=== PATIENT | male | born 1990 ===

== ENCOUNTER 2017-05-27 10:29 | Emergency (ER) | payer BC ==
[2017-05-27 11:02] VITALS: BP 126/74
--- NOTE | 2017-05-27 13:03 | Emergency Department Report ---
ED Lower Extremity HPI - General Chief Complaint: Extremity Injury, Lower Stated Complaint: KNEE PAIN Time Seen by Provider: 05/27/17 12:54 Source: patient Mode of arrival: Ambulatory Limitations: No Limitations - History of Present Illness Initial Comments: This is a 27-year-old male nontoxic, well nourished in appearance, no acute signs of distress presents to the ED with c/o of chronic intermittent bilateral knee pain. Patient stated he works in a [employer] [place] in [place] and is requested to be put on FMLA due to the pain. Patient otherwise, denies any pain. Patient stated it is only triggered at work in the [place]. Patient denies any trauma. Patient denies any knee swelling, redness, joint swelling. Patient denies any chest pain, shortness of breathe, fever, chills, headache, nausea, vomiting, back pain. Patient denies any allergies or PMH. MD Complaint: knee injury -: year(s) Place: work Severity scale (0 -10): 0 Improves With: nothing Worsens With: nothing Associated Symptoms: ambulatory. denies: snap/pop sensation, swelling, numbness , tingling, unable to bear weight, able to partially bear weight - Related Data Previous Rx's Medication Instructions Recorded Last Taken Type Ibuprofen [Motrin] 600 mg PO Q8H PRN #30 tablet 05/27/17 Unknown Rx Allergies Allergy/AdvReac Type Severity Reaction Status Date / Time No Known Allergies Allergy Unverified 05/27/17 10:58 ED Review of Systems ROS: Stated complaint: KNEE PAIN Other details as noted in HPI Constitutional: denies: chills, fever Eyes: denies: eye pain, eye discharge, vision change ENT: denies: ear pain, throat pain Respiratory: denies: cough, shortness of breath, wheezing Cardiovascular: denies: chest pain, palpitations Endocrine: no symptoms reported Gastrointestinal: denies: abdominal pain, nausea, diarrhea Genitourinary: denies: urgency, dysuria Musculoskeletal: arthralgia. denies: back pain, joint swelling Skin: denies: rash, lesions Neurological: denies: headache, weakness, paresthesias Psychiatric: denies: anxiety, depression Hematological/Lymphatic: denies: easy bleeding, easy bruising ED Past Medical Hx - Past Medical History Previous Medical History?: No Additional medical history: high cholesterol, left eye injury - Surgical History Past Surgical History?: Yes Additional Surgical History: Adenoids removed - Social History Smoking Status: Never Smoker - Medications Home Medications: Home Medications Medication Instructions Recorded Confirmed Last Taken Type Ibuprofen [Motrin] 600 mg PO Q8H PRN #30 tablet 05/27/17 Unknown Rx ED Physical Exam - General Limitations: No Limitations General appearance: alert, in no apparent distress - Head Head exam: Present: atraumatic, normocephalic - Eye Eye exam: Present: normal appearance, PERRL, EOMI Pupils: Present: normal accommodation - ENT ENT exam: Present: normal exam, normal orophraynx, mucous membranes moist, TM's normal bilaterally, normal external ear exam - Neck Neck exam: Present: normal inspection, full ROM. Absent: tenderness, meningismus, lymphadenopathy, thyromegaly - Respiratory Respiratory exam: Present: normal lung sounds bilaterally. Absent: respiratory distress, wheezes, rales, rhonchi, stridor, chest wall tenderness, accessory muscle use, decreased breath sounds, prolonged expiratory - Cardiovascular Cardiovascular Exam: Present: regular rate, normal rhythm, normal heart sounds. Absent: irregular rhythm, systolic murmur, diastolic murmur, rubs, gallop - GI/Abdominal GI/Abdominal exam: Present: soft, normal bowel sounds - Rectal Rectal exam: Present: deferred - Extremities Exam Extremities exam: Present: normal inspection, full ROM, normal capillary refill. Absent: tenderness, pedal edema, joint swelling, calf tenderness - Expanded Lower Extremity Exam Left Hip exam: Present: normal inspection (bilateral exam), full ROM, external rotation, internal rotation, pelvic stability. Absent: tenderness, swelling, abrasion, laceration, ecchymosis, deformity, crepidus, dislocation, erythema, shortening Upper Leg exam: Present: normal inspection (bilateral exam), full ROM. Absent: tenderness, swelling, abrasion, laceration, ecchymosis, deformity, crepidus, dislocation, erythema Knee exam: Present: normal inspection (bilateral exam), full ROM, full knee extension. Absent: tenderness, swelling, abrasion, laceration, ecchymosis, deformity, crepidus, dislocation, erythema, effusion, pain w/ pronation/ supination, posterior draw sign, pain/laxity with valgus, pain/laxity with varus Lower Leg exam: Present: normal inspection (bilateral exam), full ROM. Absent: tenderness, swelling, abrasion, laceration, ecchymosis, deformity, crepidus, dislocation, erythema, palpable cord, Jennifer's sign Ankle exam: Present: normal inspection (bilateral exam), full ROM. Absent: tenderness, swelling, abrasion, laceration, ecchymosis, deformity, crepidus, dislocation, erythema, anterior draw sign Foot/Toe exam: Present: normal inspection (bilateral exam), full ROM. Absent: tenderness, swelling, abrasion, laceration, ecchymosis, deformity, crepidus, dislocation, erythema, amputation, puncture wound, foreign body, calcaneal tenderness, tenderness at base of 5th metatarsal, nail avulsion, subungual hematoma Neuro vascular tendon exam: Present: no vascular compromise (bilateral exam). Absent: pulse deficit, abnormal cap refill, motor deficit, sensory deficit, tendon deficit, extremity cold to touch, pallor, abnormal 2-point discrimination , decreased fine/light touch, foot drop, peroneal nerve deficit Gait: Positive: observed and normal (bilateral exam) - Back Exam Back exam: Present: normal inspection, full ROM. Absent: tenderness, CVA tenderness (R), CVA tenderness (L), muscle spasm, paraspinal tenderness, vertebral tenderness, rash noted - Neurological Exam Neurological exam: Present: alert, oriented X3, CN II-XII intact, normal gait, reflexes normal - Psychiatric Psychiatric exam: Present: normal affect, normal mood - Skin Skin exam: Present: warm, dry, intact, normal color. Absent: rash ED Course Vital Signs 05/27/17 10:58 Temperature 97.9 F Pulse Rate 82 Respiratory 20 Rate Blood Pressure 126/74 O2 Sat by Pulse 100 Oximetry - Reevaluation(s) Reevaluation #1: 05/27/17 13:03 Patient is speaking in full sentences with no signs of distress noted. ED Lower Extremity MDM - Medical Decision Making This is a 27-year-old male presents with chronic intermittent knee pain. Patient stated this only treated at work and patient is requesting to be on FMLA. Upon examination there is no orthopedic abnormalities. No joint swelling or joint redness. Patient was referred to orthopedic doctor. At time of discharge, the patient does not seem toxic or ill in appearance. No acute signs of distress noted. Patient agrees to discharge treatment plan of care. No further questions noted by the patient. Critical care attestation.: If time is entered above; I have spent that time in minutes in the direct care of this critically ill patient, excluding procedure time. ED Disposition Clinical Impression: Bilateral knee pain Qualifiers: Chronicity: chronic Qualified Code(s): M25.561 - Pain in right knee; M25.562 - Pain in left knee; M25.562 - Pain in left knee; G89.29 - Other chronic pain; G89.29 - Other chronic pain Disposition: TO HOME OR SELFCARE Is pt being admited?: No Does the pt Need Aspirin: No Condition: Stable Instructions: Arthralgia (ED), Knee Pain (ED), Ibuprofen (By mouth) Additional Instructions: Follow-up with a orthopedic doctor in 3-5 days or if symptoms worsen and continue return to emergency room as soon as possible. Prescriptions: Ibuprofen [Motrin] 600 mg PO Q8H PRN #30 tablet PRN Reason: Pain Referrals: PRIMARY CAREMD [Primary Care Provider] - 3-5 Days LAYA RUBIO MD [Staff Physician] - 3-5 Days [facility] [Outside] - 3-5 Days [facility] [Outside] - 3-5 Days Forms: Work/School Release Form(ED)
== END 2017-05-27 13:17 | disposition home or self-care (01) ==
LOC: ED 10:29
DX: M25.561 Pain in right knee (principal); M25.562 Pain in left knee; G89.29 Other chronic pain; E78.00 Pure hypercholesterolemia, unspecified
CPT/HCPCS: 99282

== ENCOUNTER 2018-08-21 03:41 | Emergency (ER) | payer BC ==
[2018-08-21 03:48] VITALS: BP 135/76
[2018-08-21 04:40] LABS: Bacteria,Urine 2+ /HPF (Negative); Bilirubin,Urine NEG (Negative); Blood,Urine SM (Negative); Color,Urine Yellow (Yellow); Mucus,Urine FEW /HPF; Protein,Urine <15 mg/dL mg/dL (Negative); Urobilinogen,Urine < 2.0 mg/dL (<2.0)
[2018-08-21 04:41] LABS: WBC,Urine > 182.0 /HPF (0.0-6.0)
[2018-08-21] MEDS ORDERED: ZITHROMAX PO ONE (04:55)
[2018-08-21] MEDS ORDERED: XYLOCAINE 1% MPF 5 mL INFILTRATI ONE (04:55)
[2018-08-21] MEDS ORDERED: PYRIDIUM PO ONE (04:55)
[2018-08-21] MEDS ORDERED: ROCEPHIN IM ONE (04:55)
--- NOTE | 2018-08-21 05:31 | Emergency Department Report ---
ED Male HPI - General Chief complaint: Urogenital-Male Stated complaint: STD Time Seen by Provider: 08/21/18 05:00 Source: patient Mode of arrival: Ambulatory Limitations: No Limitations - History of Present Illness Initial comments: Patient is a 28-year-old -[place] male with no past medical history presents to the ED with complaint of acute onset persistence of dysuria, urinary frequency and urgency, penile discharge with the discharge for the last 2 days after having unprotected sexual intercourse about a week ago with a female. Patient denies testicular pain, fever, chills, hematuria, fall, traumatic injury, low back pain, abdominal pain, nausea and vomiting or dizziness. MD Complaint: penile discharge, dysuria, other (urinary urgency and frequency) -: Sudden, days(s) (3) Location: penis Radiation: none Severity: moderate Severity scale (0 -10): 5 Quality: aching, burning, sharp Consistency: constant Improves with: none, rest Worsens with: urination, palpation, movement, sexual intercourse new medication discharge, dysuria. denies: swelling, mass, rash, urinary retention, blood in urine, fever, nausea/vomiting, incontinence - Related Data Sexually active: Yes Previous Rx's Medication Instructions Recorded Last Taken Type Ibuprofen [Motrin] 600 mg PO Q8H PRN #30 tablet 05/27/17 Unknown Rx Ibuprofen [Motrin] 600 mg PO Q8H PRN #15 tablet 08/21/18 Unknown Rx Phenazopyridine [Pyridium] 100 mg PO Q8H PRN #15 tablet 08/21/18 Unknown Rx Sulfamethoxazole/Trimethoprim 1 each PO Q12H #20 tablet 08/21/18 Unknown Rx [Bactrim DS TAB] Allergies Allergy/AdvReac Type Severity Reaction Status Date / Time No Known Allergies Allergy Unverified 05/27/17 10:58 ED Review of Systems ROS: Stated complaint: STD Other details as noted in HPI Comment: All other systems reviewed and negative Constitutional: no symptoms reported, see HPI. denies: chills, diaphoresis, fe tory, malaise, weakness Eyes: as per HPI. denies: eye pain, eye discharge, vision change ENT: as per HPI. denies: ear pain, throat pain, dental pain, hearing loss, epistaxis Respiratory: no symptoms reported. denies: see HPI, cough, shortness of breath, SOB with exertion Cardiovascular: denies: as per HPI, chest pain, palpitations, dyspnea on exertion, edema, syncope, paroxysmal nocturnal dyspnea Endocrine: no symptoms reported, see HPI. denies: excessive sweating, flushing, intolerance to cold, increased thirst, increased urine, unexplained weight gain Gastrointestinal: as per HPI. denies: abdominal pain, nausea, vomiting, diarrhea, constipation, hematochezia Genitourinary: as per HPI, urgency, dysuria, frequency, discharge. denies: hematuria, testicular pain, testicular mass, other Musculoskeletal: as per HPI. denies: back pain, joint swelling, arthralgia, myalgia Skin: as per HPI. denies: rash, lesions, change in color, change in hair/nails Neurological: as per HPI. denies: headache, weakness, numbness, paresthesias, abnormal gait, vertigo Psychiatric: as per HPI Hematological/Lymphatic: as per HPI ED Past Medical Hx - Past Medical History Previous Medical History?: Yes Additional medical history: high cholesterol, left eye injury - Surgical History Past Surgical History?: Yes Additional Surgical History: Adenoids removed - Social History Smoking Status: Never Smoker Substance Use Type: None - Medications Home Medications: Home Medications Medication Instructions Recorded Confirmed Last Taken Type Ibuprofen [Motrin] 600 mg PO Q8H PRN #30 tablet 05/27/17 Unknown Rx Ibuprofen [Motrin] 600 mg PO Q8H PRN #15 tablet 08/21/18 Unknown Rx Phenazopyridine [Pyridium] 100 mg PO Q8H PRN #15 tablet 08/21/18 Unknown Rx Sulfamethoxazole/Trimethoprim 1 each PO Q12H #20 tablet 08/21/18 Unknown Rx [Bactrim DS TAB] ED Physical Exam - General Limitations: No Limitations General appearance: alert, in no apparent distress - Head Head exam: Present: atraumatic, normocephalic, normal inspection - Eye Eye exam: Present: normal appearance, PERRL, EOMI. Absent: scleral icterus, conjunctival injection, nystagmus Pupils: Present: normal accommodation - ENT ENT exam: Present: normal exam, normal orophraynx, mucous membranes moist, TM's normal bilaterally, normal external ear exam - Neck Neck exam: Present: normal inspection, full ROM. Absent: tenderness, lymphadenopathy - Respiratory Respiratory exam: Present: normal lung sounds bilaterally. Absent: respiratory distress, wheezes, rhonchi, chest wall tenderness, accessory muscle use, decreased breath sounds - Cardiovascular Cardiovascular Exam: Present: regular rate, normal rhythm, normal heart sounds - GI/Abdominal GI/Abdominal exam: Present: soft, normal bowel sounds. Absent: distended, tenderness, hyperactive bowel sounds, hypoactive bowel sounds - Rectal Rectal exam: Present: deferred - exam: Present: normal inspection, urethral discharge, circumcision. Absent: testicular tenderness, scrotal swelling, vertical testicular lie External exam: Present: normal external exam. Absent: erythema, swelling, lesions, lacerations - Extremities Exam Extremities exam: Present: normal inspection, full ROM, normal capillary refill - Back Exam Back exam: Present: normal inspection, full ROM. Absent: tenderness, CVA tenderness (R), CVA tenderness (L), muscle spasm, paraspinal tenderness, vertebral tenderness - Neurological Exam Neurological exam: Present: alert, oriented X3, CN II-XII intact, normal gait, reflexes normal - Psychiatric Psychiatric exam: Present: normal affect - Skin Skin exam: Present: warm, dry, intact, normal color ED Course Vital Signs 08/21/18 03:44 Temperature 97.9 F Pulse Rate 80 Respiratory 18 Rate Blood Pressure 135/76 O2 Sat by Pulse 100 Oximetry - Reevaluation(s) Reevaluation #1: 08/21/18 05:36 Patient is alert and oriented 3 and is mostly in distress with normal vital signs. Patient lab test results showed significant infection: Sexual transmitted disease. Gonorrhea and chlamydia tests results are pending. Patient was empirically treated for gonorrhea and Chlamydia in the ED and discharged home on medications, and advised to follow-up at the health department for further treatment and tests accompanied by his sexual partner. Patient was advised to return to the ED immediately if symptoms get worse. ED Medical Decision Making - Medical Decision Making Patient is alert and oriented 3 and is mostly in distress with normal vital signs. Patient lab test results showed significant infection: Sexual transmit amee disease. Gonorrhea and chlamydia tests results are pending. Patient was empirically treated for gonorrhea and Chlamydia in the ED and discharged home on medications, and advised to follow-up at the health department for further treatment and tests accompanied by his sexual partner. Patient was advised to return to the ED immediately if symptoms get worse. - Differential Diagnosis STD, Acute UTI, Critical care attestation.: If time is entered above; I have spent that time in minutes in the direct care of this critically ill patient, excluding procedure time. ED Disposition Clinical Impression: Urethritis, STD (sexually transmitted disease), Acute urinary tract infection Disposition: TO HOME OR SELFCARE Is pt being admited?: No Does the pt Need Aspirin: No Condition: Stable Instructions: Sexually Transmitted Diseases (ED), Safe Sex (ED), Urinary Tract Infection in Men (ED) Additional Instructions: Take medications with food, drink plenty of fluids and follow-up with the health department for further tests. Ensure that his sexual partner is also treated for the same at the health Department. Prescriptions: Sulfamethoxazole/Trimethoprim [Bactrim DS TAB] 1 each PO Q12H #20 tablet Ibuprofen [Motrin] 600 mg PO Q8H PRN #15 tablet PRN Reason: Pain Phenazopyridine [Pyridium] 100 mg PO Q8H PRN #15 tablet PRN Reason: Pain , Severe (7-10) Referrals: ADELINA CATALAN MD [Primary Care Provider] - 3-5 Days Forms: STI Treatment and Prevention Time of Disposition: 05:31 Print Language: URDU
== END 2018-08-21 06:13 | disposition home or self-care (01) ==
LOC: ED 03:41
DX: N34.2 Other urethritis (principal); A64 Unspecified sexually transmitted disease; E78.00 Pure hypercholesterolemia, unspecified
CPT/HCPCS: 81001; 87591; 96372; 99283; J0696